=== PATIENT | male | born 1945 | race Two or more races ===

== ENCOUNTER 2024-05-16 12:08 | Inpatient (IN) | payer MEDICARE, BC ==
[~2024-05-16] VITALS: Ht 165.1 cm; Wt 75.3 kg
[2024-05-16] VITALS (7 sets, daily range): BP systolic 117–134; BP diastolic 47–52; TEMP 95.8–97.7; O2SAT 96–100
[~2024-05-16 12:08] MED LIST: CEFU250T85 PO
[2024-05-16 13:04] LABS: EOSINOPHILS # (AUTO) 0.4 K/uL (0.0-0.7); LYMPHOCYTES # (AUTO) 0.6 K/uL (0.8-4.8); RED CELL DISTRIBUTION WIDTH 16.9 % (11.5-15.0)
[2024-05-16] MEDS ORDERED: ACET-637 PO (13:15)
[2024-05-16] MEDS ORDERED: WARF3TAB59 PO (13:15)
[2024-05-16] MEDS ORDERED: MULT1TAB70 PO (13:15)
[2024-05-16] MEDS ORDERED: TRAZ-182 PO (13:15)
[2024-05-16] MEDS ORDERED: [UNRECOGNIZED DRUG - CODE] SQ (13:15)
[2024-05-16] MEDS ORDERED: PANT40TA49 PO (13:15)
[2024-05-16] MEDS ORDERED: PRIM50TA27 PO (13:15)
[2024-05-16] MEDS ORDERED: DOCU100C36 PO (13:15)
[2024-05-16] MEDS ORDERED: POLY15DR40 EACHEYE (13:15)
[2024-05-16] MEDS ORDERED: ACID1TAB15 PO (13:15)
[2024-05-16] MEDS ORDERED: IPRA3AMP23 NEB (13:15)
[2024-05-16] MEDS ORDERED: FERR325T24 PO (13:15)
[2024-05-16] MEDS ORDERED: FURO-144 PO (13:15)
[2024-05-16] MEDS ORDERED: LEVA0.6320 NEB (13:15)
[2024-05-16] MEDS ORDERED: AIRSUPRA IH (13:15)
[2024-05-16] MEDS ORDERED: ERGO500093 PO (13:15)
[2024-05-16] MEDS ORDERED: CARV12.52 PO (13:15)
[2024-05-16] MEDS ORDERED: POLY119P17 PO (13:15)
[2024-05-16] MEDS ORDERED: BENZ200C53 PO (13:15)
[2024-05-16 13:16] LABS: BASOPHILS % (AUTO) 0.4 % (0.0-2.0); EOSINOPHILS % (AUTO) 6.8 % (0.0-6.0); HEMATOCRIT 21 % (39-51); LYMPHOCYTES % (AUTO) 9.5 % (20.0-44.0); MEAN CORPUSCULAR HEMOGLOBIN 27 PG (26.0-33.0); MEAN CORPUSCULAR HGB CONC 32 g/dl (31.0-36.0); MEAN CORPUSCULAR VOLUME 84 fL (80-96); MONOCYTES # (AUTO) 0.5 K/uL (0.1-1.30); MONOCYTES % (AUTO) 8.7 % (2.0-12.0); NEUTROPHILS # (AUTO) 4.6 K/uL (1.8-8.9); NEUTROPHILS % (AUTO) 74.6 % (43.0-81.0); PLATELET COUNT (AUTO) 169 K/uL (150-450); RED BLOOD CELL COUNT(AUTO) 2.46 MIL/uL (4.5-6.0); WHITE BLOOD COUNT (AUTO) 6.1 K/uL (4.3-11.0)
[2024-05-16 13:32] LABS: INR 1.9 (0.91-1.10); PARTIAL THROMBOPLASTIN TIME 41.2 SEC (24.3-34.3); PROTHROMBIN TIME 19.3 SECS (9.2-11.1)
[2024-05-16 13:33] LABS: HEMOGLOBIN 6.6 g/dL (13.5-17.5)
[2024-05-16 13:40] LABS: CALCIUM, SERUM 8.2 mg/dL (8.5-10.1); CARBON DIOXIDE 31 mmol/L (21-32); CHLORIDE 103 mmol/L (98-107); CREATININE 2.4 mg/dL (0.6-1.3); GLUCOSE 122 mg/dL (74-106); POTASSIUM 3.6 mmol/L (3.5-5.1); SODIUM SERUM 140 mmol/L (136-145); UREA NITROGEN, BLOOD 79 mg/dL (7-18)
[2024-05-16 13:45] LABS: ALANINE AMINOTRANSFERASE 36 U/L (12-78); ALBUMIN 2.8 g/dL (3.4-5.0); ALKALINE PHOSPHATASE 112 U/L (46-116); ASPARTATE AMINOTRANSFERASE 32 U/L (15-37); BILIRUBIN,DIRECT 0.2 mg/dL (0.0-0.2); BILIRUBIN,TOTAL 0.5 mg/dL (0.2-1.0); TOTAL PROTEIN, SERUM 6.3 g/dL (6.4-8.2)
[2024-05-16 13:48] LABS: LACTIC ACID 1.1 mmol/L (0.4-2.0)
[2024-05-16 14:46] LABS: APPEARANCE,URINE CLEAR (CLEAR); BILIRUBIN,URINE NEGATIVE (NEGATIVE); BLOOD, URINE NEGATIVE Ery/uL (NEGATIVE); COLOR,URINE YELLOW (YELLOW); KETONES,URINE NEGATIVE (NEGATIVE); LEUKOCYTE ESTERASE ,URINE NEGATIVE (NEGATIVE); NITRITE, URINE NEGATIVE (NEGATIVE); PH,URINE 5.5 (5.0-8.0); PROTEIN,URINE NEGATIVE (NEGATIVE); UGLUCOSE NEGATIVE (NEGATIVE); UROBILINOGEN,URINE 0.2 EU/dL (0.2)
[2024-05-16 14:52] LABS: ANISOCYTOSIS 1+; EOSINOPHILS % (MANUAL) 5 % (0-4); LYMPHOCYTES % (MANUAL) 8 % (16-48); MONOCYTES % (MANUAL) 6 % (0-11.0); NEUTROPHILS % (MANUAL) 81 (42-76); PLATELET ESTIMATE ADEQUATE
[2024-05-16] MEDS ORDERED: ONDANSETRON HCL/PF 4 MG/2 ML VIAL IVP PRN (17:30)
[2024-05-16] MEDS ORDERED: POLYETHYLENE GLYCOL 3350 17 GM POWD.PACK PO PRN (17:30)
[2024-05-16] MEDS ORDERED: LEVOFLOXACIN 500 MG /D5W 100ML 500 MG in PREMIX 1 EA IV SCH (17:30)
[2024-05-16] MEDS ORDERED: TRAZODONE 50 MG TABLET PO PRN (17:30)
[2024-05-16] MEDS ORDERED: MAG HYDROX/AL HYDROX/SIMETH 30 ML UDC PO PRN (17:30)
[2024-05-16] MEDS: FERROUS SULFATE (325 MG) 325 MG/TAB TABLET PO SCH (17:46)
[2024-05-16] MEDS: PANTOPRAZOLE 40 MG VIAL IV SCH (17:46)
[2024-05-16] MEDS: CEFUROXIME AXETIL 250 MG TABLET PO SCH (17:47)
[2024-05-16] MEDS: PRIMIDONE 50 MG TABLET PO SCH (22:20)
[2024-05-16] MEDS: ATORVASTATIN 10 MG TABLET PO SCH (22:20)
[2024-05-17] VITALS: BP 125/51; TEMP 97.6; O2SAT 98
[2024-05-17 04:00] VITALS: BP 136/53; TEMP 98.1; O2SAT 100
[2024-05-17 07:29] LABS: BASOPHILS % (AUTO) 0.5 % (0.0-2.0); EOSINOPHILS # (AUTO) 0.5 K/uL (0.0-0.7); EOSINOPHILS % (AUTO) 7.6 % (0.0-6.0); HEMATOCRIT 24 % (39-51); HEMOGLOBIN 7.5 g/dL (13.5-17.5); LYMPHOCYTES # (AUTO) 0.6 K/uL (0.8-4.8); LYMPHOCYTES % (AUTO) 8.8 % (20.0-44.0); MEAN CORPUSCULAR HEMOGLOBIN 27 PG (26.0-33.0); MEAN CORPUSCULAR HGB CONC 32 g/dl (31.0-36.0); MEAN CORPUSCULAR VOLUME 85 fL (80-96); MONOCYTES # (AUTO) 0.7 K/uL (0.1-1.30); MONOCYTES % (AUTO) 9.4 % (2.0-12.0); NEUTROPHILS # (AUTO) 5.2 K/uL (1.8-8.9); NEUTROPHILS % (AUTO) 73.7 % (43.0-81.0); PLATELET COUNT (AUTO) 190 K/uL (150-450); RED BLOOD CELL COUNT(AUTO) 2.82 MIL/uL (4.5-6.0); WHITE BLOOD COUNT (AUTO) 7.1 K/uL (4.3-11.0)
[2024-05-17 08:00] VITALS: BP 136/56; TEMP 98.2; O2SAT 98
[2024-05-17] MEDS: DOCUSATE SODIUM 100 MG CAPSULE PO SCH (08:41)
[2024-05-17] MEDS: CARVEDILOL 12.5 MG TABLET PO SCH (08:41)
[2024-05-17] MEDS: PANTOPRAZOLE 40 MG TABLET.DR PO SCH (08:41)
[2024-05-17] MEDS: MULTIVIT W/MINERALS 1 TAB TABLET PO SCH (08:41)
[2024-05-17] MEDS: FUROSEMIDE 100 MG/10 ML VIAL IV SCH (09:29)
[2024-05-17 10:45] LABS: CALCIUM, SERUM 8.2 mg/dL (8.5-10.1); CREATININE 2.3 mg/dL (0.6-1.3); MAGNESIUM 2.3 mg/dL (1.8-2.4); PHOSPHORUS 3.9 mg/dL (2.5-4.9); POTASSIUM 3.7 mmol/L (3.5-5.1)
[2024-05-17 11:32] LABS: ABG BASE EXCESS 1.5 mmol/L (-2.0-3.0); ABG OXYGEN SATURATION 97.7 % (94.0-98.0); ABG PCO2 51.7 mmHg (35.0-48.0); ABG PH 7.344 (7.350-7.450); ABG PO2 103.4 mmHg (83.0-108.0); ABG TOTAL HEMOGLOBIN 7.5 G/dL (13.5-17.5); COHb 0.9 % (0.5-1.5); MetHb 0.3 % (0.0-1.5); O2Hb 96.5 % (94.0-97.0); SITE, ABG RIGHT RADIAL
[2024-05-17 12:00] VITALS: BP 127/55; TEMP 97.4; O2SAT 98
[2024-05-17 16:00] VITALS: BP 115/44; TEMP 97.9; O2SAT 100
[2024-05-17 16:36] LABS: CREATININE, URINE 70.8 MG/DL (30.0-125.0); URINE TOTAL PROTEIN 40.2 mg/dL (0-11.9)
[2024-05-17 20:00] VITALS: BP_SYST 106; BP_SYST 127; BP_DIAS 40; BP_DIAS 61; TEMP 100.4; TEMP 97.3; O2SAT 95; O2SAT 96
[2024-05-18] VITALS: BP 125/59; TEMP 97.9; O2SAT 98
[2024-05-18 04:00] VITALS: BP 142/54; TEMP 97.7; O2SAT 96; O2SAT 98
[2024-05-18 06:18] LABS: BASOPHILS % (AUTO) 0.3 % (0.0-2.0); EOSINOPHILS # (AUTO) 0.5 K/uL (0.0-0.7); EOSINOPHILS % (AUTO) 7.3 % (0.0-6.0); HEMATOCRIT 22 % (39-51); HEMOGLOBIN 7.2 g/dL (13.5-17.5); LYMPHOCYTES # (AUTO) 0.6 K/uL (0.8-4.8); LYMPHOCYTES % (AUTO) 8.1 % (20.0-44.0); MEAN CORPUSCULAR HEMOGLOBIN 28 PG (26.0-33.0); MEAN CORPUSCULAR HGB CONC 33 g/dl (31.0-36.0); MEAN CORPUSCULAR VOLUME 85 fL (80-96); MONOCYTES # (AUTO) 0.7 K/uL (0.1-1.30); MONOCYTES % (AUTO) 10.3 % (2.0-12.0); NEUTROPHILS # (AUTO) 5.2 K/uL (1.8-8.9); PLATELET COUNT (AUTO) 200 K/uL (150-450); RED BLOOD CELL COUNT(AUTO) 2.59 MIL/uL (4.5-6.0); WHITE BLOOD COUNT (AUTO) 7.1 K/uL (4.3-11.0)
[2024-05-18 06:42] LABS: ALBUMIN 2.7 g/dL (3.4-5.0); BILIRUBIN,TOTAL 0.7 mg/dL (0.2-1.0); CREATININE 2.1 mg/dL (0.6-1.3); MAGNESIUM 2.2 mg/dL (1.8-2.4); PHOSPHORUS 3.4 mg/dL (2.5-4.9); POTASSIUM 3.5 mmol/L (3.5-5.1)
[2024-05-18 07:00] VITALS: BP 126/72; TEMP 98.2; O2SAT 94
[2024-05-18 12:00] VITALS: BP_SYST 132; BP_DIAS 54; BP_DIAS 60; TEMP 97.9; TEMP 98.6; O2SAT 96; O2SAT 97
[2024-05-18 16:00] VITALS: BP 135/54; TEMP 97.9; O2SAT 95
[2024-05-18 20:00] VITALS: BP_SYST 126; BP_DIAS 45; BP_DIAS 55; TEMP 97.3; TEMP 97.5; O2SAT 99
[2024-05-18 21:24] LABS: INR 1.56 (0.91-1.10); PROTHROMBIN TIME 16.1 SECS (9.2-11.1)
[2024-05-19] MEDS: BENZONATATE 100 MG CAPSULE PO PRN (05:25)
[2024-05-19 06:37] VITALS: O2SAT 93
[2024-05-19] MEDS: IPRATROPIUM NEB FS 0.5 MG/2.5 ML AMPUL.NEB NEB PRN (06:37)
[2024-05-19] MEDS: ALBUTEROL FS 2.5 MG/0.5 ML VIAL.NEB NEB PRN (06:37)
[2024-05-19 06:47] VITALS: O2SAT 99
[2024-05-19 07:56] LABS: ALBUMIN 2.8 g/dL (3.4-5.0); BILIRUBIN,TOTAL 0.9 mg/dL (0.2-1.0); CALCIUM, SERUM 7.8 mg/dL (8.5-10.1); MAGNESIUM 2.4 mg/dL (1.8-2.4); PHOSPHORUS 2.9 mg/dL (2.5-4.9); POTASSIUM 3.8 mmol/L (3.5-5.1)
[2024-05-19 07:59] LABS: BASOPHILS % (AUTO) 0.5 % (0.0-2.0); EOSINOPHILS # (AUTO) 0.6 K/uL (0.0-0.7); HEMATOCRIT 25 % (39-51); HEMOGLOBIN 7.3 g/dL (13.5-17.5); LYMPHOCYTES # (AUTO) 0.6 K/uL (0.8-4.8); LYMPHOCYTES % (AUTO) 6.4 % (20.0-44.0); MEAN CORPUSCULAR HEMOGLOBIN 27 PG (26.0-33.0); MEAN CORPUSCULAR HGB CONC 30 g/dl (31.0-36.0); MEAN CORPUSCULAR VOLUME 90 fL (80-96); MONOCYTES # (AUTO) 0.9 K/uL (0.1-1.30); MONOCYTES % (AUTO) 10.5 % (2.0-12.0); NEUTROPHILS # (AUTO) 6.5 K/uL (1.8-8.9); NEUTROPHILS % (AUTO) 75.6 % (43.0-81.0); PLATELET COUNT (AUTO) 206 K/uL (150-450); RED BLOOD CELL COUNT(AUTO) 2.74 MIL/uL (4.5-6.0); RED CELL DISTRIBUTION WIDTH 17.5 % (11.5-15.0); WHITE BLOOD COUNT (AUTO) 8.6 K/uL (4.3-11.0)
[2024-05-19] MEDS: ACETAMINOPHEN 325 MG TABLET PO PRN (10:37)
[2024-05-19 20:00] VITALS: BP 137/54; TEMP 97.9; O2SAT 99
[2024-05-20 07:00] LABS: CALCIUM, SERUM 8.4 mg/dL (8.5-10.1); CREATININE 2.1 mg/dL (0.6-1.3); POTASSIUM 3.8 mmol/L (3.5-5.1)
[2024-05-20 07:04] LABS: BASOPHILS # (AUTO) 0.1 K/uL (0.0-0.2); BASOPHILS % (AUTO) 0.8 % (0.0-2.0); EOSINOPHILS # (AUTO) 0.4 K/uL (0.0-0.7); EOSINOPHILS % (AUTO) 5.8 % (0.0-6.0); HEMATOCRIT 23 % (39-51); HEMOGLOBIN 7.2 g/dL (13.5-17.5); LYMPHOCYTES # (AUTO) 0.4 K/uL (0.8-4.8); MEAN CORPUSCULAR HEMOGLOBIN 27 PG (26.0-33.0); MEAN CORPUSCULAR HGB CONC 32 g/dl (31.0-36.0); MEAN CORPUSCULAR VOLUME 83 fL (80-96); MONOCYTES # (AUTO) 0.8 K/uL (0.1-1.30); MONOCYTES % (AUTO) 11.8 % (2.0-12.0); NEUTROPHILS # (AUTO) 5.3 K/uL (1.8-8.9); NEUTROPHILS % (AUTO) 75.6 % (43.0-81.0); PLATELET COUNT (AUTO) 198 K/uL (150-450); RED BLOOD CELL COUNT(AUTO) 2.73 MIL/uL (4.5-6.0); RED CELL DISTRIBUTION WIDTH 16.3 % (11.5-15.0)
[2024-05-20 16:00] VITALS: BP 122/54; TEMP 98.1; O2SAT 99
[2024-05-20 19:10] LABS: APPEARANCE,SPUN,BODY FLUID CLEAR (CLEAR); TOTAL VOLUME,BODY FLUID 1800 mL
[2024-05-20 19:18] LABS: PROTEIN, BODY FLUID 1.1 G/DL
[2024-05-20 19:46] LABS: WBC, BODY FLUID 89 /cu. mm. (0-200)
[2024-05-20 20:00] VITALS: BP_SYST 119; BP_DIAS 42; BP_DIAS 43; TEMP 97.9; O2SAT 99
[2024-05-20 21:40] LABS: MACROPHAGES, BODY FLUID 50; POLYNUCLEAR, BODY FLUID 2 % (0-25)
[2024-05-21 08:00] VITALS: BP 122/44; TEMP 97.9; O2SAT 99
[2024-05-21] MEDS ORDERED: MORPHINE SULFATE INJ 2 MG/ML DISP.SYRIN IV PRN (09:30)
[2024-05-21] MEDS: PANTOPRAZOLE 40 MG VIAL IV SCH (10:17)
[2024-05-21 10:50] LABS: BASOPHILS % (AUTO) 0.2 % (0.0-2.0); EOSINOPHILS # (AUTO) 0.4 K/uL (0.0-0.7); EOSINOPHILS % (AUTO) 6.1 % (0.0-6.0); HEMATOCRIT 23 % (39-51); HEMOGLOBIN 7.1 g/dL (13.5-17.5); LYMPHOCYTES # (AUTO) 0.5 K/uL (0.8-4.8); LYMPHOCYTES % (AUTO) 6.6 % (20.0-44.0); MEAN CORPUSCULAR HEMOGLOBIN 26 PG (26.0-33.0); MEAN CORPUSCULAR HGB CONC 31 g/dl (31.0-36.0); MEAN CORPUSCULAR VOLUME 84 fL (80-96); MONOCYTES # (AUTO) 1.1 K/uL (0.1-1.30); MONOCYTES % (AUTO) 15.7 % (2.0-12.0); NEUTROPHILS # (AUTO) 4.9 K/uL (1.8-8.9); NEUTROPHILS % (AUTO) 71.4 % (43.0-81.0); PLATELET COUNT (AUTO) 187 K/uL (150-450); RED BLOOD CELL COUNT(AUTO) 2.73 MIL/uL (4.5-6.0); RED CELL DISTRIBUTION WIDTH 16.8 % (11.5-15.0); WHITE BLOOD COUNT (AUTO) 6.8 K/uL (4.3-11.0)
[2024-05-21 10:58] LABS: CALCIUM, SERUM 8.1 mg/dL (8.5-10.1); CARBON DIOXIDE 33 mmol/L (21-32); CHLORIDE 104 mmol/L (98-107); CREATININE 2.4 mg/dL (0.6-1.3); GLUCOSE 105 mg/dL (74-106); POTASSIUM 3.8 mmol/L (3.5-5.1); SODIUM SERUM 142 mmol/L (136-145); UREA NITROGEN, BLOOD 71 mg/dL (7-18)
[2024-05-21] MEDS: ENOXAPARIN SODIUM 80 MG/0.8 ML DISP.SYRIN SQ SCH (11:00)
[2024-05-21 12:08] LABS: PTH, INTACT 36 pg/mL (15-65)
[2024-05-21] MEDS: WARFARIN SODIUM 5 MG TABLET PO SCH (17:40)
[2024-05-21 17:44] LABS: OCCULT BLOOD STOOL NEGATIVE (NEGATIVE)
[2024-05-21 18:48] VITALS: BP 123/89; TEMP 97.9; O2SAT 100
[2024-05-21 20:00] VITALS: BP 117/56; TEMP 98.8; O2SAT 94
[2024-05-22 07:28] LABS: BASOPHILS # (AUTO) 0.1 K/uL (0.0-0.2); BASOPHILS % (AUTO) 0.8 % (0.0-2.0); EOSINOPHILS # (AUTO) 0.2 K/uL (0.0-0.7); EOSINOPHILS % (AUTO) 2.1 % (0.0-6.0); HEMATOCRIT 24 % (39-51); HEMOGLOBIN 7.6 g/dL (13.5-17.5); LYMPHOCYTES # (AUTO) 0.5 K/uL (0.8-4.8); LYMPHOCYTES % (AUTO) 6.9 % (20.0-44.0); MEAN CORPUSCULAR HEMOGLOBIN 26 PG (26.0-33.0); MEAN CORPUSCULAR HGB CONC 32 g/dl (31.0-36.0); MEAN CORPUSCULAR VOLUME 83 fL (80-96); MONOCYTES # (AUTO) 1.1 K/uL (0.1-1.30); MONOCYTES % (AUTO) 15.1 % (2.0-12.0); NEUTROPHILS # (AUTO) 5.5 K/uL (1.8-8.9); NEUTROPHILS % (AUTO) 75.1 % (43.0-81.0); PLATELET COUNT (AUTO) 213 K/uL (150-450); RED CELL DISTRIBUTION WIDTH 16.2 % (11.5-15.0); WHITE BLOOD COUNT (AUTO) 7.3 K/uL (4.3-11.0)
[2024-05-22 07:35] LABS: CALCIUM, SERUM 7.3 mg/dL (8.5-10.1); CREATININE 2.3 mg/dL (0.6-1.3); POTASSIUM 3.7 mmol/L (3.5-5.1)
[2024-05-22 08:00] VITALS: BP 118/42; TEMP 98.4; O2SAT 94
[2024-05-22] MEDS: PANTOPRAZOLE 40 MG TABLET.DR PO SCH (09:08)
[2024-05-22 15:28] VITALS: BP 111/45; TEMP 98.1; O2SAT 98
[2024-05-22] MEDS: POLYVINYL ALCOHOL 15 ML BOTTLE EACHEYE PRN (18:31)
[2024-05-22 19:04] LABS: INR 1.43 (0.91-1.10); PROTHROMBIN TIME 14.8 SECS (9.2-11.1)
[2024-05-22 20:00] VITALS: BP 113/45; TEMP 97.5; O2SAT 99
[2024-05-23 07:29] LABS: BASOPHILS % (AUTO) 0.5 % (0.0-2.0); EOSINOPHILS # (AUTO) 0.4 K/uL (0.0-0.7); EOSINOPHILS % (AUTO) 8.1 % (0.0-6.0); HEMATOCRIT 25 % (39-51); HEMOGLOBIN 7.6 g/dL (13.5-17.5); LYMPHOCYTES # (AUTO) 0.4 K/uL (0.8-4.8); LYMPHOCYTES % (AUTO) 8.9 % (20.0-44.0); MEAN CORPUSCULAR HEMOGLOBIN 26 PG (26.0-33.0); MEAN CORPUSCULAR HGB CONC 31 g/dl (31.0-36.0); MEAN CORPUSCULAR VOLUME 82 fL (80-96); MONOCYTES # (AUTO) 1.3 K/uL (0.1-1.30); MONOCYTES % (AUTO) 25.6 % (2.0-12.0); NEUTROPHILS # (AUTO) 2.9 K/uL (1.8-8.9); NEUTROPHILS % (AUTO) 56.9 % (43.0-81.0); PLATELET COUNT (AUTO) 207 K/uL (150-450); RED BLOOD CELL COUNT(AUTO) 2.99 MIL/uL (4.5-6.0); RED CELL DISTRIBUTION WIDTH 15.9 % (11.5-15.0)
[2024-05-23 07:58] LABS: CALCIUM, SERUM 7.6 mg/dL (8.5-10.1); CREATININE 2.1 mg/dL (0.6-1.3); POTASSIUM 3.4 mmol/L (3.5-5.1)
[2024-05-23 08:36] VITALS: BP 127/52; TEMP 98.1; O2SAT 100
[2024-05-23 09:11] LABS: EOSINOPHILS % (MANUAL) 5 % (0-4); LYMPHOCYTES % (MANUAL) 9 % (16-48); MONOCYTES % (MANUAL) 24 % (0-11.0)
[2024-05-23 09:12] LABS: ANISOCYTOSIS 1+; HYPOCHROMASIA 1+; NEUTROPHILS % (MANUAL) 62 (42-76); PLATELET ESTIMATE ADEQUATE
[2024-05-23 09:13] LABS: TEAR DROP CELLS 1+
[2024-05-23] MEDS: POTASSIUM CHLORIDE 10 MEQ TABLET.SA PO ONE (10:51)
[2024-05-23 11:08] LABS: *SPE ALBUMIN 2.9 g/dL (2.9-4.4); *SPE ALPHA-1-GLOBULIN 0.3 g/dL (0.0-0.4); *SPE ALPHA-2-GLOBULIN 0.5 g/dL (0.4-1.0); *SPE BETA GLOBULIN 0.8 g/dL (0.7-1.3); *SPE GLOBULIN, TOTAL 2.8 g/dL (2.2-3.9); *SPE M-SPIKE Not Observed g/dL (Not Observed); *SPE PROTEIN TOTAL 5.7 g/dL (6.0-8.5); *SPEGAMMA GLOBULIN 1.1 g/dL (0.4-1.8)
[2024-05-23] MEDS ORDERED: WARF5TAB8 PO (11:23)
[2024-05-23] MEDS ORDERED: ENOX80DI SQ (11:23)
[2024-05-23 16:02] VITALS: BP 103/42; TEMP 97.5; O2SAT 100
[2024-05-23 16:09] LABS: INR 1.85 (0.91-1.10); PROTHROMBIN TIME 18.8 SECS (9.2-11.1)
[2024-05-23 20:00] VITALS: BP 112/44; TEMP 97.7; O2SAT 100
[2024-05-24] VITALS: BP 118/70; TEMP 98.4; O2SAT 95
[2024-05-24 08:00] VITALS: BP 132/44; TEMP 98.4; O2SAT 96
[2024-05-24 12:54] LABS: INR 2.45 (0.91-1.10); PROTHROMBIN TIME 24.5 SECS (9.2-11.1)
[2024-05-24 15:58] VITALS: BP 110/40; TEMP 98.2; O2SAT 98
[2024-05-24 17:27] LABS: CALCIUM, SERUM 7.4 mg/dL (8.5-10.1); CREATININE 2.1 mg/dL (0.6-1.3); POTASSIUM 3.3 mmol/L (3.5-5.1)
[2024-05-24 22:00] VITALS: BP 109/47; TEMP 97.8; O2SAT 98
[2024-05-25 11:14] VITALS: BP 124/52; TEMP 98.2; O2SAT 97
[2024-05-25 12:54] LABS: INR 3.46 (0.91-1.10); PROTHROMBIN TIME 33.8 SECS (9.2-11.1)
[2024-05-25 16:00] VITALS: BP 116/53; TEMP 98.4; O2SAT 92
[2024-05-25] MEDS: WARFARIN SODIUM 1 MG TABLET PO ONE (18:31)
[2024-05-25 20:00] VITALS: BP 122/83; TEMP 97.9; O2SAT 92; O2SAT 94
== END 2024-05-25 21:10 | disposition home health service (06) | DRG 291 ==
LOC: ER 12:10 → TELE 14:36 → MED 05-18 20:00
PROVIDERS: ADMIT Nurse Practitioner Acute Care; ATTEND Surgery Vascular Surgery
PROC: 30233N1 Transfusion of Nonautologous Red Blood Cells into Peripheral Vein, Percutaneous Approach (ICD-10-PCS; 2024-05-16)
PROC: 0W993ZX Drainage of Right Pleural Cavity, Percutaneous Approach, Diagnostic (ICD-10-PCS; 2024-05-20)
PROC: 0DJ08ZZ Inspection of Upper Intestinal Tract, Via Natural or Artificial Opening Endoscopic (ICD-10-PCS; principal; 2024-05-21)
PROC: 0DJ08ZZ Inspection of Upper Intestinal Tract, Via Natural or Artificial Opening Endoscopic (ICD-10-PCS; 2024-05-21)
DX: I13.0 Hypertensive heart and chronic kidney disease with heart failure and stage 1 through stage 4 chronic kidney disease, or unspecified chronic kidney disease (principal); I50.33 Acute on chronic diastolic (congestive) heart failure; J15.9 Unspecified bacterial pneumonia; N17.0 Acute kidney failure with tubular necrosis; E44.0 Moderate protein-calorie malnutrition; N18.4 Chronic kidney disease, stage 4 (severe); J90 Pleural effusion, not elsewhere classified; Z95.2 Presence of prosthetic heart valve; E88.09 Other disorders of plasma-protein metabolism, not elsewhere classified; I27.20 Pulmonary hypertension, unspecified; K29.70 Gastritis, unspecified, without bleeding; Z95.810 Presence of automatic (implantable) cardiac defibrillator; I34.0 Nonrheumatic mitral (valve) insufficiency; K27.9 Peptic ulcer, site unspecified, unspecified as acute or chronic, without hemorrhage or perforation; M89.8X9 Other specified disorders of bone, unspecified site; Z86.79 Personal history of other diseases of the circulatory system; Z79.899 Other long term (current) drug therapy; E78.5 Hyperlipidemia, unspecified; E87.6 Hypokalemia; D63.8 Anemia in other chronic diseases classified elsewhere; Z87.11 Personal history of peptic ulcer disease; Z79.01 Long term (current) use of anticoagulants; Z87.891 Personal history of nicotine dependence
CPT/HCPCS: 36415; 70450-TC; 71045-TC; 76770-TC; 80048-TC; 80053-TC; 80061-TC; 80076-TC; 82272-TC; 82550-TC; 82570-TC; 82803-TC; 82962-TC; 83605-TC; 83735-TC; 83970; 84100-TC; 84155; 84155-TC; 84165; 84300-TC; 84484-TC; 85025-TC; 85610-TC; 85730-TC; 86850-TC; 87040-TC; 87086-TC; 87102-TC; 88108-TC; 88305-TC; 89051-TC; 93307-TC; 94760-TC; 94799-TC; 97110-TC; 97112-TC; 97116-TC; 97530-TC; G0378; J1650; J1940; J2470; J2704; J7030; J7050; P9016